=== PATIENT | female | born 1985 | race Caucasian/White ===

== ENCOUNTER 2016-08-26 19:21 | Observation (INO) | payer OTHER ==
[2016-08-26] MEDS ORDERED: ONDANSETRON 4 MG/2 ML VIAL ONE (19:48)
--- NOTE | 2016-08-26 19:49 | EDPHY ---
H & P Stated Complaint: 16 WKS HCG, Time Seen by Provider: 08/26/16 19:49 - Personal History EDC: 05/04/16 Current Tetanus/Diphtheria Vaccine: Yes Current Tetanus Diphtheria and Acellular Pertussis (TDAP): Yes - Medical/Surgical History Hx Asthma: No Hx Chronic Respiratory Disease: No Hx Diabetes: No Hx Cardiac Disease: No Hx Renal Disease: No Hx Cirrhosis: No Hx Alcoholism: No Hx HIV/AIDS: No Hx Splenectomy or Spleen Trauma: No Other PMH: pmh: KIDNEY STONES - Social History Smoking Status: Never smoked Constitutional: Initial Vital Signs Heart Rate 63 08/26/16 19:26 Respiratory Rate 18 08/26/16 19:26 Blood Pressure 107/69 08/26/16 19:26 O2 Sat (%) 99 08/26/16 19:26 O2 Delivery Mode Room Air O2 (L/minute) 2 Allergies/Adverse Reactions: Sulfa (Sulfonamide Antibiotics) Allergy (Verified 08/26/16 19:28) Home Medications: Medication Instructions Recorded NK [No Known Home Meds] 08/26/16 Medical Decision Making ED Course/Re-evaluation: CHIEF COMPLAINT: Bladder and left flank pain HISTORY OF PRESENT ILLNESS: 30-year-old female who is 16 weeks . She woke up this morning feeling normal but then developed some left flank pain radiating down to her groin. She has had both urinary tract infections and kidney stones in the past. This made feel like a kidney stone to her. She denies any prior urinary symptoms over the last several days. She denies fevers or chills. She is nauseated from the pain. She has not tried anything to relieve the pain. REVIEW OF SYSTEMS: A 10 point review of systems was performed and is negative with the exception of the elements mentioned in the history of present illness. PHYSICAL EXAM: HR, BP, O2 Sat, RR. Temp noted General Appearance: Alert, well hydrated, appropriate, and non-toxic appearing. Head: Atraumatic without scalp tenderness or obvious injury Eyes: Pupils equal, round, reactive to light and accommodation, EOMI, no trauma , no injection. Ears: Clear bilaterally, no perforation, normal landmarks Nose: Atraumatic, no rhinorrhea, clear. Throat: There is no erythema or exudates, no lesions, normal tonsils, mucus membranes moist. Neck: Supple, 2+ carotid upstroke, nontender, no lymphadenopathy. Respiratory: No retractions, no distress, no wheezes, and no accessory muscle use. Lungs are clear to auscultation bilaterally. Cardiovascular: Regular rate and rhythm, no murmurs, rubs, or gallops. Bilateral carotid, radial, dorsalis pedis, and posterior tibial pulses intact. Good capillary refill all extremities. Gastrointestinal: Abdomen is soft, nontender, non-distended, no masses, no rebound, no guarding, no peritoneal signs. Musculoskeletal: Normal active ROM of all extremities, atraumatic. Neurological: Alert, appropriate, and interactive. The patient has normal DTRs and non-focal cranial nerves, motor, sensory, and cerebellar exam. Skin: No rashes, good turgor, no nodules on palpation. Past medical history: Kidney stones and urinary tract infections currently Past surgical history: Noncontributory Family history: Noncontributory Social history: , does not use tobacco drugs or alcohol, employed DIAGNOSTICS/PROCEDURES/CRITICAL CARE TIME: Study: Ultrasound of the: left kidney Indication: left flank pain rule out hydronephrosis Results: US scan of the left kidney was obtained. The results of the study indicate moderate hydronephrosis with hydroureter. The study was read by the radiologist, Dr. Coleman. I viewed the images myself on the PACS system. DIFFERENTIAL DIAGNOSIS: The differential diagnosis for the patient's flank pain included but was not limited to musculoskeletal causes, kidney stone, pyelonephritis, shingles, diverticulitis, appendicitis, and aortic aneurysm. MEDICAL DECISION MAKING: This patient could either have urinary tract infection which is moved to a pyelonephritis or a kidney stone. I did explain to her that to get her out of pain we would have to use some narcotic analgesics which may slightly affect her baby but would be most likely very safe the short run. I will give her 0.5 mg of Dilaudid. She also received 4 mg of Zofran. Ultrasound is pending. IV fluids are also being given. 2203: Imaging results reported to me by Dr. Coleman and are suggestive of kidney stone with possible infection. My recommendation is that the patient is admitted for pain and infection management given her status. 2204: I discussed the patient's case with the [facility] staff outside dealer sales representative who recommends that the patient be admitted here. 2209: Consultation with Dr. Elder Marques, hospitalist, who accepts admission. 2215: Consultation with Dr. Danya Forbes, Machine Attendant, who does not recommend any additional intervention at this time. 2231: Consultation with Dr. Benson Galdamez, urology, who will see the patient in the hospital. - Data Points Laboratory Results: Laboratory Results 08/26/16 19:56 08/26/16 19:56 08/26/16 08/26/16 20:23 19:56 WBC 8.65 10^3/uL (3.80-9.50) RBC 4.36 10^6/uL (4.18-5.33) Hgb 13.9 g/dL (12.6-16.3) Hct 40.9 % (38.0-47.0) MCV 93.8 fL (81.5-99.8) MCH 31.9 pg (27.9-34.1) MCHC 34.0 g/dL (32.4-36.7) RDW 12.9 % (11.5-15.2) Plt Count 154 10^3/uL (150-400) MPV 12.2 H fL (8.7-11.7) Neut % (Auto) 70.9 % (39.3-74.2) Lymph % (Auto) 22.5 % (15.0-45.0) [place] % (Auto) 5.0 % (4.5-13.0) Eos % (Auto) 1.0 % (0.6-7.6) Baso % (Auto) 0.3 % (0.3-1.7) Nucleat RBC Rel Count 0.0 % (0.0-0.2) Absolute Neuts (auto) 6.12 10^3/uL (1.70-6.50) Absolute Lymphs (auto) 1.95 10^3/uL (1.00-3.00) Absolute Monos (auto) 0.43 10^3/uL (0.30-0.80) Absolute Eos (auto) 0.09 10^3/uL (0.03-0.40) Absolute Basos (auto) 0.03 10^3/uL (0.02-0.10) Absolute Nucleated RBC 0.00 10^3/uL (0-0.01) Immature Gran % 0.3 % (0.0-1.1) Immature Gran # 0.03 10^3/uL (0.00-0.10) Sodium 136 mEq/L (134-144) Potassium 3.3 L mEq/L (3.5-5.2) Chloride 106 mEq/L (97-110) Carbon Dioxide 21 L mEq/l (22-31) Anion Gap 9 mEq/L (8-16) BUN 9 mg/dL (7-23) Creatinine 0.5 L mg/dL (0.6-1.0) Estimated GFR > 60 Glucose 92 mg/dL (70-100) Calcium 9.0 mg/dL (8.5-10.4) Urine Color YELLOW Urine Appearance MODERATELY TURBID Urine pH 8.0 H (5.0-7.5) Ur Specific [place] 1.012 (1.002-1.030) Urine Protein NEGATIVE (NEGATIVE) Urine Ketones 1+ H (NEGATIVE) Urine Blood 2+ H (NEGATIVE) Urine Nitrate NEGATIVE (NEGATIVE) Urine Bilirubin NEGATIVE (NEGATIVE) Urine Urobilinogen NEGATIVE EU (0.2-1.0) Ur Leukocyte Esterase 1+ H (NEGATIVE) Urine RBC 50-182 H /hpf (0-3) Urine WBC 5-10 H /hpf (0-3) Ur Epithelial Cells 1+ /lpf (NONE-1+) Urine Mucus TRACE /lpf (NONE-1+) Ur Culture Indicated? INDICATED H (NI) Urine Glucose NEGATIVE (NEGATIVE) Medications Given: Discontinued Medications Hydromorphone HCl (Dilaudid) 0.5 mg IVP EDNOW ONE Stop: 08/26/16 20:01 Last Admin: 08/26/16 20:04 Dose: 0.5 mg Hydromorphone HCl (Dilaudid) 0.5 mg IVP EDNOW ONE Stop: 08/26/16 20:34 Last Admin: 08/26/16 20:39 Dose: 0.5 mg Hydromorphone HCl (Dilaudid) 0.5 mg IVP EDNOW ONE Stop: 08/26/16 21:37 Last Admin: 08/26/16 21:55 Dose: 0.5 mg Sodium Chloride (Ns) 1,000 mls @ 0 mls/hr IV ONCE ONE PRN Reason: Wide Open Stop: 08/26/16 19:53 Last Admin: 08/26/16 20:04 Dose: 1,000 mls Ceftriaxone Sodium/Dextrose (Rocephin 1 Gm (Premix)) 50 mls @ 100 mls/hr IV EDNOW ONE PRN Reason: Protocol Stop: 08/26/16 21:25 Last Admin: 08/26/16 21:59 Dose: 50 mls Ondansetron HCl (Zofran) 4 mg IVP EDNOW ONE Stop: 08/26/16 19:53 Last Admin: 08/26/16 20:04 Dose: 4 mg Departure - Departure Disposition: [facility] Inpatient Acute Clinical Impression: Kidney stone Condition: Fair Report Scribed for: Ever Sandhu Report Scribed by: Raquel Ramirez Date of Report: 08/26/16 Time of Report: 22:06
[2016-08-26] MEDS ORDERED: ONDANSETRON 4 MG/2 ML VIAL IVP ONE (19:52)
[2016-08-26] MEDS ORDERED: NS 1,000 ML IV ONE (19:52)
[2016-08-26] MEDS ORDERED: HYDROmorphONE/DILAUDID 1 MG/ML SYR ONE (19:59)
[2016-08-26] MEDS ORDERED: HYDROmorphONE/DILAUDID 1 MG/ML SYR IVP ONE ×3 (20:00→21:36)
[2016-08-26 20:07] LABS: % IMMATURE GRANULYOCYTES 0.3 % (0.0-1.1); ABSOLUTE IMMATURE GRANULOCYTES 0.03 10^3/uL (0.00-0.10); ADD DIFF? NO; ADD MORPH? NO; ADD SCAN? NO; ATYPICAL LYMPHOCYTE FLAG 10 (0-99); FRAGMENT RBC FLAG 0 (0-99); HEMATOCRIT 40.9 % (38.0-47.0); HEMOGLOBIN 13.9 g/dL (12.6-16.3); LEFT SHIFT FLG 0 (0-99); LIPEMIA HEMOLYSIS FLAG 90 (0-99); MEAN CELL HEMOGLOBIN 31.9 pg (27.9-34.1); MEAN CELL VOLUME 93.8 fL (81.5-99.8); MEAN PLATELET VOLUME 12.2 fL (8.7-11.7); PLATELET CLUMPS FLAG 0 (0-99); PLATELET COUNT 154 10^3/uL (150-400); RED BLOOD CELL COUNT 4.36 10^6/uL (4.18-5.33); RED CELL DISTRIBUTION WIDTH 12.9 % (11.5-15.2)
[2016-08-26 20:18] LABS: ANION GAP 9 mEq/L (8-16); CARBON DIOXIDE 21 mEq/l (22-31); CHLORIDE 106 mEq/L (97-110); CREATININE 0.5 mg/dL (0.6-1.0); GLOMERULAR FILTRATION RATE > 60; GLUCOSE 92 mg/dL (70-100); POTASSIUM 3.3 mEq/L (3.5-5.2); SODIUM 136 mEq/L (134-144)
[2016-08-26 20:36] LABS: COLOR YELLOW; LEUKOCYTE ESTERASE,URINE 1+ (NEGATIVE); NITRITE,URINE NEGATIVE (NEGATIVE)
[2016-08-26 20:49] LABS: MUCUS TRACE /lpf (NONE-1+); RBC,URINE 50-182 /hpf (0-3)
[2016-08-26] MEDS ORDERED: ONDANSETRON DISINTEGRATING 4 MG TAB PO PRN (22:32)
[2016-08-26] MEDS ORDERED: oxyCODONE IR 5 MG TAB PO PRN (22:32)
[2016-08-26] MEDS ORDERED: ONDANSETRON 4 MG/2 ML VIAL IVP PRN (22:32)
[2016-08-26] MEDS ORDERED: ACETAMINOPHEN 325 MG TAB PO PRN (22:32)
--- NOTE | 2016-08-26 22:43 | US ---
Complete Retroperitoneal Ultrasound Indication: Sixteen weeks . History of left-sided kidney stones. New onset left flank pain . Technique: Complete retroperitoneal ultrasound is performed. Comparison: No priors for comparison. Findings: The right kidney measures 10.5 x 4.7 x 4.9 cm. The cortex is 1.7 cm. There is no hydrone phrosis. No stones. The left kidney measures 12.3 x 4.6 x 5.7 cm. There is mild hydronephrosis. There is a single calyx at the lower pole that probably would qualify for moderate distention. The ureters are not visualized on either side. There is a suggestion of a 3.4-mm intrarenal left-sided stone adjacent to the most dilated calyx. Neither ureteral jets are seen. Prevoid bladder volume is 93 mL. Postvoid bladder volume is 33 mL. Impressions 1. Mild to moderate left-sided hydronephrosis. 2. Possible 3.4-mm left intrarenal stone. 3. Neither ureteral jets are seen. 4. At 16 weeks, considering the unilaterality, my suspicion is that the cause of the left-sided hydr onephrosis is a stone and not the alone. Findings are discussed with Dr. Ever Sandhu.
[2016-08-26] MEDS ORDERED: NS 1,000 ML IV SCH (22:45)
--- NOTE | 2016-08-27 00:52 | PDGENHP ---
History and Physical - Chief Complaint flank pain - History of Present Illness 30 yo F, 16 weeks , presenting with left flank pain radiating to the groin beginning this morning. She has a history of kidney stones and this felt very much like that. She has not have fever or chills. She was nauseous when the pain was severe, but is no longer having nausea. Her has been progressing well and without issue. Her last kidney stone was about 14 years ago and she has required surgery for stones in the past. History Information - Allergies/Home Medication List Allergies/Adverse Reactions: Sulfa (Sulfonamide Antibiotics) Allergy (Verified 08/26/16 19:28) Home Medications: NK [No Known Home Meds] 08/26/16 [Last Taken Unknown] I have personally reviewed and updated: family history, medical history, social history, surgical history - Past Medical History Additional medical history: nephrolithiasis. recurrent uti - Surgical History Additional surgical history: surgical intervention for kidney stone - Family History Positive for: non-pertinent - Social History Smoking Status: Never smoked Alcohol Use: None Drug Use: None Additional social history: Review of Systems ROS: 10pt was reviewed & negative except for what was stated in HPI & below Physical Exam Temp Pulse Resp BP Pulse Ox 36.7 C 85 15 108/74 94 08/26/16 23:46 08/26/16 23:46 08/26/16 23:46 08/26/16 23:46 08/26/16 23:46 Constitutional: appears nourished, uncomfortable Eyes: PERRL Ears, Nose, Mouth, Throat: moist mucous membranes, hearing normal Cardiovascular: regular rate and rhythym, no murmur, rub, or gallop Respiratory: no respiratory distress, no rales or rhonchi Gastrointestinal: normoactive bowel sounds, soft, non-tender abdomen, tenderness (left cva ttp), No guarding, No rebound Genitourinary: no bladder tenderness Skin: warm, normal color Musculoskeletal: full muscle strength Neurologic: AAOx3 Psychiatric: interacting appropriately, not anxious, not encephalopathic Lab Data & Imaging Review 08/26/16 19:56 08/26/16 19:56 WBC 8.65 10^3/uL (3.80-9.50) 08/26/16 19:56 RBC 4.36 10^6/uL (4.18-5.33) 08/26/16 19:56 Hgb 13.9 g/dL (12.6-16.3) 08/26/16 19:56 Hct 40.9 % (38.0-47.0) 08/26/16 19:56 MCV 93.8 fL (81.5-99.8) 08/26/16 19:56 MCH 31.9 pg (27.9-34.1) 08/26/16 19:56 MCHC 34.0 g/dL (32.4-36.7) 08/26/16 19:56 RDW 12.9 % (11.5-15.2) 08/26/16 19:56 Plt Count 154 10^3/uL (150-400) 08/26/16 19:56 MPV 12.2 fL (8.7-11.7) H 08/26/16 19:56 Neut % (Auto) 70.9 % (39.3-74.2) 08/26/16 19:56 Lymph % (Auto) 22.5 % (15.0-45.0) 08/26/16 19:56 [place] % (Auto) 5.0 % (4.5-13.0) 08/26/16 19:56 Eos % (Auto) 1.0 % (0.6-7.6) 08/26/16 19:56 Baso % (Auto) 0.3 % (0.3-1.7) 08/26/16 19:56 Nucleat RBC Rel Count 0.0 % (0.0-0.2) 08/26/16 19:56 Absolute Neuts (auto) 6.12 10^3/uL (1.70-6.50) 08/26/16 19:56 Absolute Lymphs (auto) 1.95 10^3/uL (1.00-3.00) 08/26/16 19:56 Absolute Monos (auto) 0.43 10^3/uL (0.30-0.80) 08/26/16 19:56 Absolute Eos (auto) 0.09 10^3/uL (0.03-0.40) 08/26/16 19:56 Absolute Basos (auto) 0.03 10^3/uL (0.02-0.10) 08/26/16 19:56 Absolute Nucleated RBC 0.00 10^3/uL (0-0.01) 08/26/16 19:56 Immature Gran % 0.3 % (0.0-1.1) 08/26/16 19:56 Immature Gran # 0.03 10^3/uL (0.00-0.10) 08/26/16 19:56 Sodium 136 mEq/L (134-144) 08/26/16 19:56 Potassium 3.3 mEq/L (3.5-5.2) L 08/26/16 19:56 Chloride 106 mEq/L (97-110) 08/26/16 19:56 Carbon Dioxide 21 mEq/l (22-31) L 08/26/16 19:56 Anion Gap 9 mEq/L (8-16) 08/26/16 19:56 BUN 9 mg/dL (7-23) 08/26/16 19:56 Creatinine 0.5 mg/dL (0.6-1.0) L 08/26/16 19:56 Estimated GFR > 60 08/26/16 19:56 Glucose 92 mg/dL (70-100) 08/26/16 19:56 Calcium 9.0 mg/dL (8.5-10.4) 08/26/16 19:56 Urine Color YELLOW 08/26/16 20:23 Urine Appearance MODERATELY TURBID 08/26/16 20:23 Urine pH 8.0 (5.0-7.5) H 08/26/16 20:23 Ur Specific [place] 1.012 (1.002-1.030) 08/26/16 20:23 Urine Protein NEGATIVE (NEGATIVE) 08/26/16 20:23 Urine Ketones 1+ (NEGATIVE) H 08/26/16 20:23 Urine Blood 2+ (NEGATIVE) H 08/26/16 20:23 Urine Nitrate NEGATIVE (NEGATIVE) 08/26/16 20:23 Urine Bilirubin NEGATIVE (NEGATIVE) 08/26/16 20:23 Urine Urobilinogen NEGATIVE EU (0.2-1.0) 08/26/16 20:23 Ur Leukocyte Esterase 1+ (NEGATIVE) H 08/26/16 20:23 Urine RBC 50-182 /hpf (0-3) H 08/26/16 20:23 Urine WBC 5-10 /hpf (0-3) H 08/26/16 20:23 Ur Epithelial Cells 1+ /lpf (NONE-1+) 08/26/16 20:23 Urine Mucus TRACE /lpf (NONE-1+) 08/26/16 20:23 Ur Culture Indicated? INDICATED (NI) H 08/26/16 20:23 Urine Glucose NEGATIVE (NEGATIVE) 08/26/16 20:23 Assessment & Plan Assessment: Kidney stone (Acute) 30 yo F at 16 weeks gestation presenting with flank pain and nephrolithiasis and possible UTI # nephrolithiasis: with associated hydroureter and by US suspicion of 3-4mm intrarenal stone. Given size, hoping it will pass with conservative mgmt. IVF overnight, straining urine. Urology consulted and will evaluate patient in am. # bacturia: in setting of kidney stone as above, UA mostly with blood but also + leuk esterase and with small amt of wbc. Cultures pending. Given ctx in ER and notes that she is feeling better already. Will hold off on further abx for now pending final urine culture data. # : patient at 16 weeks gestation, OB consulted and will see patient while in house # observation status, will likely need < 48 hours stay for eval/mgmt of above Pt new to my care. Old records reviewed and summarized as above. Care plan reviewed with ER doctor as above. Further hx obtained from patients present at bedside.
[2016-08-27] MEDS: HYDROmorphONE/DILAUDID 1 MG/ML SYR IVP PRN ×3 (01:21→11:10)
[2016-08-27 06:09] LABS: % IMMATURE GRANULYOCYTES 0.5 % (0.0-1.1); ABSOLUTE IMMATURE GRANULOCYTES 0.06 10^3/uL (0.00-0.10); ADD DIFF? NO; ADD MORPH? NO; ADD SCAN? NO; ATYPICAL LYMPHOCYTE FLAG 0 (0-99); FRAGMENT RBC FLAG 0 (0-99); HEMATOCRIT 38.3 % (38.0-47.0); HEMOGLOBIN 12.8 g/dL (12.6-16.3); LEFT SHIFT FLG 0 (0-99); LIPEMIA HEMOLYSIS FLAG 80 (0-99); MEAN CELL HEMOGLOBIN 31.8 pg (27.9-34.1); MEAN CELL HEMOGLOBIN CONCENTR. 33.4 g/dL (32.4-36.7); MEAN PLATELET VOLUME 12.4 fL (8.7-11.7); PLATELET CLUMPS FLAG 0 (0-99); PLATELET COUNT 163 10^3/uL (150-400); RED BLOOD CELL COUNT 4.03 10^6/uL (4.18-5.33); RED CELL DISTRIBUTION WIDTH 12.9 % (11.5-15.2)
[2016-08-27 06:42] LABS: ANION GAP 7 mEq/L (8-16); CALCIUM 8.5 mg/dL (8.5-10.4); CARBON DIOXIDE 22 mEq/l (22-31); CHLORIDE 111 mEq/L (97-110); CREATININE 0.5 mg/dL (0.6-1.0); GLOMERULAR FILTRATION RATE > 60; GLUCOSE 81 mg/dL (70-100); POTASSIUM 4.6 mEq/L (3.5-5.2); SODIUM 140 mEq/L (134-144)
[2016-08-27 08:08] VITALS: PULSE 80; RESP 16
[2016-08-27] MEDS ORDERED: HYDROmorphONE/DILAUDID 2 MG TAB PO PRN (11:58)
[2016-08-27] MEDS ORDERED: TAMSULOSIN HCL 0.4 MG CAP PO SCH (12:00)
--- NOTE | 2016-08-27 12:04 | HOSPPROG ---
Hospitalist Progress Note Assessment/Plan: healthy 30 yo with a history of renal stones is admitted with flank pain and hematuria # Hematuria/flank pain. likely from renal stone, unable to get CT due to IUP but US suggestive of obstructing ureter stone * discussed with Urology. * transition from IV narcotics (high risk) to PO * continue agressive hydration * add flomax (discussed with Dr. Montaño, category B) * If patient pain controlled on oral meds can be discharged home with follow up with [facility] Subjective: Pt new to [place], chart reviewed Objective: Vital Signs Temp Pulse Resp BP Pulse Ox 37.2 C 80 16 86/51 L 98 08/27/16 08:04 08/27/16 08:04 08/27/16 08:04 08/27/16 08:04 08/27/16 08:04 Laboratory Results 08/27/16 05:50 08/27/16 05:50 08/26/16 08/27/16 08/28/16 05:59 05:59 05:59 Intake Total 2010 Output Total 600 Balance 1410 - Physical Exam Constitutional: uncomfortable Eyes: PERRL Cardiovascular: regular rate and rhythym, no murmur, rub, or gallop Respiratory: no respiratory distress, no rales or rhonchi, clear to auscultation Gastrointestinal: normoactive bowel sounds, no palpable masses, tenderness, No guarding, No distension Genitourinary: no bladder fullness, No samson in urethra Skin: warm, normal color Musculoskeletal: full muscle strength, no joint effusions Neurologic: AAOx3, No other Psychiatric: interacting appropriately, not anxious, not encephalopathic ICD10 Worksheet Patient Problems: Problems Problem Status Diagnosed Kidney stone Acute
[2016-08-27] MEDS ORDERED: NS 1,000 ML IV ONE (12:30)
--- NOTE | 2016-08-27 13:29 | GCON ---
[f rep st] CONSULTATION UROLOGY CONSULTATION NOTE. DATE OF CONSULTATION: 08/27/2016 PHYSICIAN REQUESTING CONSULTATION: Hospitalist service. REASON FOR CONSULTATION: Hydronephrosis, possible kidney stones. HISTORY: This is a 30-year-old woman who is 16 weeks and developed a subacute onset of lowe r abdominal pain yesterday along with fairly significant dysuria, for which she presented to the [facility] room last night. She was on her way to [place] with her for a weekend retreat, sterling cameron from [place]. She underwent evaluation in the emergency room, and it was decided to admit the p atient for further management. Since admission, the patient's pain is considerably improved on IV Di laudid. She also had 1 episode of emesis yesterday and has not had any nausea or emesis since then. She denies fevers, flu-like symptoms, or gross hematuria. She has a longstanding history of recurrent kidney stones that required multiple interventions, but a ll more than 10 years ago. Her stones have been calcium oxalate in the past, and she has been diagno sed with renal tubular acidosis as well. Her has otherwise been going well. She receives her care through [facility] in [place]. PAST MEDICAL HISTORY: Sixteen weeks intrauterine , history of recurrent nephrolithiasis. O therwise healthy. PAST SURGICAL HISTORY: Multiple shockwave lithotripsies and prior ureteroscopy for kidney stones, ag ain all greater than 10 years ago. ADMISSION MEDICATIONS: None. MEDICAL ALLERGIES: Sulfa. FAMILY HISTORY: Noncontributory. SOCIAL HISTORY: The patient and her live in the [place] area. She denies use of tobacco nor alcohol products. REVIEW OF SYSTEMS: Unremarkable, other than mentioned above in the HPI and past medical history. PHYSICAL EXAM: GENERAL: Healthy, well-developed, well-nourished white female lying supine in bed in no acute distress. VITAL SIGNS: Blood pressure 86/51, pulse 80, respirations 16, oxygen saturation 98% on room air, temperature 37.2 Celsius. HEENT: Normocephalic, atraumatic. NECK: Supple. HEAR T: Regular rate. CHEST: Unlabored respiratory pattern. ABDOMEN: Soft with mild left lower quadra nt tenderness to palpation without peritoneal signs nor involuntary guarding. Gravid abdomen is note d. BACK: Mild left CVA tenderness to gentle percussion. EXTREMITIES: Warm without cyanosis, clubb ing, nor edema. VASCULAR: Normal femoral, dorsalis pedis, and posterior tibial pulses bilaterally. NEUROLOGIC: She is alert and oriented. She answers all questions appropriately with normal mood and affect. IMAGING: Abdominal sonography yesterday: Upon my review, notable for mild left hydronephrosis. No obvious calculi are seen. The ureter is not specifically examined. Bladder appears unremarkable. LABORATORY: CBC today notable for white blood cell count 43714, otherwise normal. Chemistry panel t lin notable for creatinine 0.5, otherwise normal. Urinalysis from yesterday reveals 50-180 red bloo d cells and 5-10 white blood cells with 1+ epithelial cells by microscopy. IMPRESSION: 1. Abdominal pain with a history of recurrent nephrolithiasis. The patient is 16 weeks with intraut erine . 2. Mild left hydronephrosis. 3. Significant microhematuria. DISCUSSION: Differential diagnosis was reviewed with the patient and her today. Ureterolith iasis would be certainly a possibility considering her history and the findings of microhematuria wit h mild left hydronephrosis. There is also a possibility of ovarian vein syndrome, although this woul d be less likely with the detection of significant microhematuria on urinalysis. Management options for possible ureterolithiasis in a gravid state were reviewed with the patient and would include obse rvation, aggressive medical management with analgesics, Flomax, hydration, and intraoperative uretero scopy with C-arm fluoroscopy and anesthesia. Operative intervention would also require ureteral sten ting. I explained that in this situation we try and avoid surgery as much as possible in order to mi nimize exposure of radiation to the fetus as well as reduce the risk of labor. It is also we ll known that women do not tolerate ureteral stents very well at all and have a much higher risk of calcium deposition on the stents, even if they are kept indwelling for a very short period of time. All of the patient's questions were answered to her apparent satisfaction today. PLAN: 1. I recommend conservative medical management with oral Dilaudid p.r.n. and initiation of Flomax if the latter is okay with OB and hospitalist service. 2. If she does well on oral narcotics, then I would recommend discharge with Dilaudid p.r.n. and a p rescription for Flomax. She should also be drinking upwards of 4-5 quarts of water daily. 3. If she is able to be discharged, then she should follow up with her well service floor worker within the next week. If she continues to have pain following discharge that persists beyond the next 1-2 weeks, the n consideration should be given to undergoing intraoperative diagnostic ureteroscopy. Conversely, if she does not do well on oral narcotics prior to her discharge from this hospital, then consideration will be given to proceed with intraoperative ureteroscopy prior to discharge. Thank you for this consultation. /[id number]/MODL
--- NOTE | 2016-08-27 16:15 | GDS ---
[f rep st] DISCHARGE SUMMARY DIAGNOSES: 1. Hydronephrosis secondary to kidney stone. 2. Hematuria. 3. Intrauterine . 4. History of recurrent nephrolithiasis. PROCEDURES: Ultrasound: [id number] left hydronephrosis with a possible 3-4 mm left intrarenal stone. Neither ureteral jet was seen. HOSPITAL COURSE: The patient is a 30-year-old woman 16 weeks who comes in with acute onset of left flank pain. She was on her way to [place] and due to the pain detoured to the hospital. Evaluation included an ultrasound which did reveal some left hydronephrosis. It was unable to determ ine the size of the stone, but she does have a history significant for recurrent renal stones in the past. She was admitted overnight for hydration and pain control. She was converted over to oral nirmala cotics this afternoon and, if she continues to do well on oral medications and unable to keep hydrate d on her own, she can go home with close followup with [facility] next week. She did have a consultation by Dr. Galdamez from Urology. He recommends conservative management given her status and th en she should follow up with her rn admit next week. If she continues to have pain after dischar beyond the next 1-2 weeks, then consideration should be given to undergoing intraoperative diagnos tic ureteroscopy. Certainly, if she has recurrent severe pain that is not controlled with oral narco tic, she should come back to this hospital or a [facility] facility. DISCHARGE CONDITION: Good. Vital signs are stable. Her pain is fairly well controlled, although sh emeka complains of a headache. DISCHARGE MEDICATIONS: Please see discharge medication form. FOLLOWUP: Followup will be with [facility] next week. TIME SPENT: Total time spent with patient on day of discharge and coordination of care was 35 minute s. /[id number]/MODL
[2016-08-27 16:25] VITALS: BP 91/61; TEMP 98.2; O2SAT 96
[2016-08-27] MEDS ORDERED: NS 1,000 ML IV SCH (17:30)
== END 2016-08-27 17:05 | disposition home or self-care (01) ==
LOC: FOB 08-27 00:15
PROVIDERS: ADMIT Internal Medicine; ATTEND Internal Medicine
DX: N13.2 Hydronephrosis with renal and ureteral calculous obstruction (principal); O08.89 Other complications following an ectopic and molar pregnancy; Z3A.16 16 weeks gestation of pregnancy; Z87.442 Personal history of urinary calculi
CPT/HCPCS: 76770; 96361; 96365; 96375; 96376; 99285; G0378; J0696; J1170; J2405